=== PATIENT | female | born 1990 | race Caucasian/White ===

== ENCOUNTER 2020-07-12 09:57 | Emergency (ER) | payer SELFPAY ==
[~2020-07-12] VITALS: Ht 149.9 cm; Wt 63.5 kg
[2020-07-12 09:59] VITALS: BP 119/61
--- NOTE | 2020-07-12 10:25 | NUR ---
30 y/o F coming in from home with c/c abdominal pain. patient states 3-4 days ago, she drank a Red Bull and began experiencing abdominal pain and bloating. Patient reports progressively worsening abdominal pain and bloating that persisted. Patient reports pain 5/10, stabbing/pressure, intermittent, non-radiating to her umbilical down to her suprapubic region. Patient states it worsens with walking, and feels like cramping when ambulating. Patient states associated nausea and chills. Denies vomiting, chest pain, back pain, SOB, dizziness, fatigue, fever, cough, cold-like symptoms. Patient denies any medications prior to arrival. Bowel sounds normoactive x 4 quadrants. Patient placed into a gown. Last BM: yesterday; normal/semi-formed. LMP: 06/19/2020. Pt placed onto quality assurance monitor final. Bed locked in lowest position, side rails x 1, call light in reach. PMH/Meds/Sx: Denies NKA
--- NOTE | 2020-07-12 10:33 | NUR ---
DR FULLER AT BEDSIDE EXAMINING PATIENT
[2020-07-12] MEDS ORDERED: NACL 0.9% 1,000 ML IV ONE (10:40)
[2020-07-12] MEDS ORDERED: KETOROLAC 15 MG/ML VIAL IVP ONE (10:40)
--- NOTE | 2020-07-12 10:46 | NUR ---
Female Ct Scan Technician accompanied female patient for Pelvic Exam.
--- NOTE | 2020-07-12 10:48 | NUR ---
US tech at bedside for exam.
[2020-07-12 10:55] LABS: BASOPHILS # (AUTO) 0.1 K/uL (0.00-0.22); BASOPHILS % (AUTO) 0.5 % (0.0-2.0); EOSINOPHILS # (AUTO) 0.1 K/uL (0-0.4); HEMOGLOBIN 13.1 g/dL (12.0-16.0); LYMPHOCYTES # (AUTO) 1.7 K/uL (2.5-16.5); LYMPHOCYTES % (AUTO) 13.3 % (20.5-51.1); MEAN CORPUSCULAR HEMOGLOBIN 31 pg (27-31); MEAN CORPUSCULAR HGB CONC 34 g/dL (33-37); MEAN CORPUSCULAR VOLUME 91.8 fL (80-94); MONOCYTES # (AUTO) 0.8 K/uL (0.8-1.0); MONOCYTES % (AUTO) 6.1 % (1.7-9.3); NEUTROPHILS # (AUTO) 10.3 K/uL (1.8-7.7); NEUTROPHILS % (AUTO) 79.1 % (42.2-75.2); PLATELET COUNT (AUTO) 248 K/uL (140-450); RED BLOOD CELL COUNT(AUTO) 4.24 MIL/uL (4.20-5.40); RED CELL DISTRIBUTION WIDTH 13.1 % (11.6-13.7)
[2020-07-12 11:09] LABS: BILIRUBIN,URINE NEGATIVE (NEGATIVE); BLOOD, URINE 1+ (NEGATIVE); COLOR,URINE YELLOW (YELLOW); LEUKOCYTE ESTERASE ,URINE TRACE (NEGATIVE); NITRITE, URINE NEGATIVE (NEGATIVE); PH,URINE 6.5 (5.0-9.0); UGLUCOSE NEGATIVE (NEGATIVE)
[2020-07-12 11:14] LABS: ALBUMIN 2.8 g/dL (3.4-5.0); ANION GAP 9.2 (8-16); CARBON DIOXIDE 29.8 mmol/L (21-32); CREATININE 0.4 mg/dL (0.6-1.3); TOTAL BILIRUBIN 0.3 mg/dL (0.0-1.0)
[2020-07-12 11:23] LABS: APPEARANCE,URINE SLIGHTLY HAZY (CLEAR)
[2020-07-12 11:24] LABS: WBC,URINE 0-5 /HPF (0-5)
--- NOTE | 2020-07-12 11:35 | NUR ---
Patient resting in semi-fowlers in position of comfort. Respirations even/unlabored. All pt needs met at this time. Cardiac montior in place. Bed locked in lowest position, side rails x 1.
--- NOTE | 2020-07-12 11:40 | NUR ---
Patient transported to CT via wheelchair.
--- NOTE | 2020-07-12 11:50 | NUR ---
Patient returned from CT scan.
--- NOTE | 2020-07-12 12:30 | NUR ---
Patient is awake in semi-fowlers position. Respirations even/unlabored. Bed locked in lowest position, side rails x 1.
--- NOTE | 2020-07-12 13:00 | NUR ---
PATIENT GIVEN CRACKERS AND JUICE FOR PO CHALLENGE
[2020-07-12] MEDS ORDERED: cefTRIAXone 500 MG in LIDOCAINE MPF 1% 1 ML IM ONE (13:50)
[2020-07-12] MEDS ORDERED: DOXYCYCLINE 100 MG CAP PO SCH (13:50)
[2020-07-12] MEDS ORDERED: metroNIDAZOLE 250 MG TAB PO ONE (13:50)
[2020-07-12] MEDS ORDERED: DOXY100T9 PO (13:51)
[2020-07-12] MEDS ORDERED: METR500T1 PO (13:51)
[2020-07-12] MEDS ORDERED: cefTRIAXone 500 MG VIAL ONE (14:00)
[2020-07-12] MEDS ORDERED: LIDOCAINE MPF 1% 5 ML ONE (14:00)
[2020-07-12 14:16] VITALS: BP 119/61
--- NOTE | 2020-07-12 14:17 | NUR ---
Patient discharged with v/s stable. Written and verbal after care instructions given and explained. Patient alert, oriented and verbalized understanding of instructions. Ambulatory with steady gait. All questions addressed prior to discharge. ID band removed. Patient advised to follow up with PMD. Rx of DOXYCYCLINE AND FLAGYL given. Patient educated on indication of medication including possible reaction and side effects. Opportunity to ask questions provided and answered.
== END 2020-07-12 14:17 | disposition home or self-care (01) ==
LOC: MED 09:57
DX: N83.291 Other ovarian cyst, right side (principal); N76.0 Acute vaginitis
CPT/HCPCS: 36415; 74177; 76830; 80053; 81001; 81025; 83690; 85025; 87210; 93976; 96361; 96372; 96374; 99285; J0696; J1885; J2001; J7030; Q9967